=== PATIENT | male | born 1945 | race Caucasian/White ===

== ENCOUNTER 2018-03-28 09:45 | Emergency (ER) | payer MEDICARE, BC ==
--- NOTE | 2018-03-28 09:55 | UC ---
Hand/Wrist HPI - HPI Summary HPI Summary: injury to top of left hand 2 days ago now has a small purulent collection and redness to his wrist full/and painless ROM distally - History Of Current Complaint Chief Complaint: UCUpperExtremity Stated Complaint: LEFT HAND COMPLAINT Time Seen by Provider: 03/28/18 09:49 Hx Obtained From: Patient ?: No Mechanism Of Injury: unsure how he injured his hand Onset/Duration: Gradual Onset, Lasting Days - 2, Still Present Severity Currently: Mild Alleviating Factor(s): Nothing Associated Signs And Symptoms: Positive: Swelling Related History: Dominant Hand Right - Allergies/Home Medications Allergies/Adverse Reactions: Allergies Allergy/AdvReac Type Severity Reaction Status Date / Time No Known Allergies Allergy Verified 12/14/13 15:27 Home Medications: Home Medications Allopurinol [Zyloprim 300 MG TAB] 300 mg PO DAILY 03/28/18 [History Confirmed ] Ascorbic Acid TAB* [Vitamin C TAB*] 500 mg PO DAILY 03/28/18 [History Confirmed 03/28/18] PMH/Surg Hx/FS Hx/Imm Hx Endocrine History: Hypothyroidism Cardiovascular History: Hypertension GI/ History: Gastroesophageal Reflux - Surgical History Surgical History: Yes Surgery Procedure, Year, and Place: bipass. R knee replacement. hernia repair - Family History Known Family History: Positive: None - Social History Occupation: Retired Lives: With Family Alcohol Use: Occasionally Substance Use Type: None When Did the Patient Quit Smoking/Using Tobacco: 40 years ago - Immunization History Hx Tetanus, Diphtheria Vaccination: No Vaccination Up to Date: No Review of Systems Constitutional: Negative Skin: Other - 6 mm diameter scabbed area , tender with purulent collection Eyes: Negative ENT: Negative Respiratory: Negative Cardiovascular: Negative Gastrointestinal: Negative Genitourinary: Negative Motor: Negative Neurovascular: Negative Musculoskeletal: Negative Neurological: Negative Psychological: Negative Is Patient Immunocompromised?: Yes - on enbrel All Other Systems Reviewed And Are Negative: Yes Physical Exam Triage Information Reviewed: Yes Appearance: Well-Appearing, No Pain Distress, Well-Nourished Vital Signs Reviewed: Yes Eye Exam: Normal Eyes: Positive: Conjunctiva Clear ENT Exam: Normal ENT: Positive: Normal ENT inspection, Hearing grossly normal. Negative: Trismus , Muffled voice, Hoarse voice Dental Exam: Normal Neck exam: Normal Neck: Positive: Supple, Nontender Respiratory Exam: Normal Respiratory: Positive: Chest non-tender, No respiratory distress, No accessory muscle use Cardiovascular Exam: Normal Cardiovascular: Positive: RRR, Pulses Normal, Brisk Capillary Refill Musculoskeletal Exam: Normal Musculoskeletal: Positive: Strength Intact, ROM Intact, No Edema Neurological Exam: Normal Neurological: Positive: Alert, Muscle Tone Normal Psychological Exam: Normal Skin Exam: Other Skin: Positive: Other - 6 mm wound near 2mcp joint left hand with erythema, tenderness, small purulent collection Hand/Wrist Course/Dx - Course Course Of Treatment: soap and water wash, warm compress, keflex up date tetanus follow with pcp rpn - Differential Dx/Diagnosis Provider Diagnoses: left hand wound infection Discharge - Sign-Out/Discharge Documenting (check all that apply): Patient Departure All imaging exams completed and their final reports reviewed: No Studies - Discharge Plan Condition: Stable Disposition: HOME Prescriptions: Cephalexin CAP* [Keflex CAP*] 500 mg PO QID #20 cap Patient Education Materials: Wound Infection (ED), Warm Compress or Soak (ED) Referrals: Girish Gary DO [Primary Care Provider] - If Needed - Billing Disposition and Condition Condition: STABLE Disposition: Home
[2018-03-28 10:00] VITALS: BP 116/80
[2018-03-28] MEDS ORDERED: Tetan/Diph/Pertus SYR(Tdap)* 0.5 ML SYR(BOOSTRIX) use SYR IM ONE (10:08)
== END 2018-03-28 10:17 | disposition home or self-care (01) ==
LOC: UCCORT 09:45
DX: S60.922A Unspecified superficial injury of left hand, initial encounter (principal); I10 Essential (primary) hypertension; L08.9 Local infection of the skin and subcutaneous tissue, unspecified; X58.XXXA Exposure to other specified factors, initial encounter; Y92.9 Unspecified place or not applicable
CPT/HCPCS: 90471; 90715; 99212; G0463